=== PATIENT | female | born 1935 | race Caucasian/White ===

== ENCOUNTER 2018-03-02 13:41 | Inpatient (IN) | payer MEDICARE, BC ==
[2018-03-02] MEDS ORDERED: Sodium Chloride 0.9% 10 ML Syringe FLUSH PRN (13:50)
[2018-03-02] MEDS ORDERED: Sodium Chloride 0.9% 2.5 ML Syringe FLUSH PRN (13:50)
--- NOTE | 2018-03-02 13:53 | EDM.PDOC ---
ED HPI GENERAL MEDICAL PROBLEM - General Chief Complaint: General Stated Complaint: SORE THROAT,VOMITING Time Seen by Provider: 03/02/18 13:42 Source of Information: Reports: Family History Limitations: Reports: Other (Deaf and blind) - History of Present Illness INITIAL COMMENTS - FREE TEXT/NARRATIVE: History of present illness: []Patient has had low-grade fevers, short of breath and cough for 2 days. History of myelodysplastic syndrome and bruises very easily. At home with her was brought in by her granddaughter today. Patient is deaf and blind. Patient is not a candidate for other medical treatments at this time just receives transfusions when her hemoglobin gets to 7.0 and or her platelets are less than 10,000. Review of systems: As per history of present illness and below otherwise all systems reviewed and negative. Past medical history: As per history of present illness and as reviewed below otherwise noncontributory. Surgical history: As per history of present illness and as reviewed below otherwise noncontributory. Social history: No reported history of drug or alcohol abuse. Family history: As per history of present illness and as reviewed below otherwise noncontributory. Physical exam: General: Well developed, well nourished in NAD HEENT: Atraumatic, normocephalic, pupils reactive, negative for conjunctival pallor or scleral icterus, mucous membranes moist, throat clear, neck supple, nontender, trachea midline. Lungs: Clear to auscultation, breath sounds equal bilaterally, chest nontender. Heart: S1S2, regular, negative for clicks, rubs, or JVD. Abdomen: Soft, nondistended, nontender. Negative for masses or hepatosplenomegaly. Negative for costovertebral tenderness. Pelvis: Stable nontender. Genitourinary: Deferred. Rectal: Deferred. Extremities: Atraumatic, negative for cords or calf pain. Neurovascular unremarkable. Neuro: Awake, Exam nonfocal. Skin: Multiple large areas of purple ecchymosis Diagnostics: []Chest x-ray lower lobe patchy infiltrates read as pulmonary fibrosis by CRL, WBC shows white count 17,000 H&H of 7.2 and 25 platelets 15,000 Therapeutics: []IV antibiotics, IV hydration and blood transfusion Impression: []Pneumonia, myelodysplastic syndrome Plan: []Admit for transfusion and observation, Definitive disposition and diagnosis as appropriate pending reevaluation and review of above. - Related Data Allergies Allergy/AdvReac Type Severity Reaction Status Date / Time dexamethasone Allergy Cannot Verified 03/02/18 14:03 Remember hydrochlorothiazide Allergy Anaphylactic Verified 03/02/18 14:03 [From Maxzide] Shock triamterene [From Maxzide] Allergy Anaphylactic Verified 03/02/18 14:03 Shock Home Meds: Home Meds Citalopram Hydrobromide [Celexa] 20 mg PO DAILY 02/06/14 [History] Glucosamine [Glucosamine Sulfate] 1,000 mg PO DAILY 02/06/14 [History] Simvastatin [Zocor] 10 mg PO BEDTIME 02/06/14 [History] Flaxseed Oil 1,000 mg PO DAILY 06/11/16 [History] Furosemide [Lasix] 40 mg PO DAILY 06/11/16 [History] Levothyroxine [Synthroid] 50 mcg PO ACBREAKFAST 06/11/16 [History] Losartan Potassium [Cozaar] 100 mg PO DAILY 06/11/16 [History] Magnesium Oxide 400 mg PO DAILY 07/10/17 [History] Cholecalciferol (Vitamin D3) [Vitamin D3] 200 units PO DAILY 07/30/17 [History] Multivitamin with Minerals [Multivitamins with Minerals] 1 tab PO DAILY [History] Calcium Carb/D3/Magnesium/Zinc [Neto Mag Zinc + D Tablet] 1 tab PO DAILY [History] amLODIPine Besylate [Amlodipine Besylate] 5 mg PO DAILY 03/02/18 [History] Past Medical History HEENT History: Reports: Macular Degeneration Other HEENT History: legally blind Cardiovascular History: Reports: Afib, High Cholesterol, Hypertension, [place] Other Cardiovascular History: tri cuspid valve disorders, coronary artherosclerosis Respiratory History: Reports: Other (See Below) Other Respiratory History: pneumonia Gastrointestinal History: Reports: None, Other (See Below) Other Gastrointestinal History: hemoccult pos stool Genitourinary History: Reports: Other (See Below) Other Genitourinary History: renal insufficiency 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: Other Musculoskeletal History: use of cane occassionally Neurological History: Reports: CVA Other Neuro History: CVA x2, cerebrovascular disease Psychiatric History: Reports: Depression Endocrine/Metabolic History: Reports: Hypothyroidism Hematologic History: Other Hematologic History: hx macrocytic anemia, pancytopenia Immunologic History: Reports: None Oncologic (Cancer) History: Reports: None Dermatologic History: Reports: None - Past Surgical History Head Surgeries/Procedures: HEENT Surgical History: Reports: Oral Surgery Cardiovascular Surgical History: Reports: Coronary Artery Bypass Female Surgical History: Reports: D&C Neurological Surgical History: Reports: Lumbar Spine Other Neurological Surgeries/Procedures: back surgery x2 Musculoskeletal Surgical History: Reports: Knee Replacement, Other (See Below) Other Musculoskeletal Surgeries/Procedures:: back surgery Oncologic Surgical History: Reports: None Dermatological Surgical History: Reports: None Social & Family History - Family History Family Medical History: Noncontributory - Caffeine Use Caffeine Use: Reports: None - Living Situation & Occupation Living situation: Reports: with Family Occupation: Retired ED ROS GENERAL - Review of Systems Review Of Systems: See Below (See history of present illness) ED EXAM, GENERAL - Physical Exam Exam: See Below (See history of present illness) Course - Vital Signs Last Recorded V/S: Last Vital Signs Temp 98.5 F 03/02/18 14:04 Pulse 72 03/02/18 14:04 Resp 18 03/02/18 14:04 BP 144/48 H 03/02/18 14:04 Pulse Ox 95 03/02/18 14:04 - Orders/Labs/Meds Orders: Active Orders 24 hr Category Date Time Status Patient Status [ADT] Stat ADT 03/02/18 15:28 Ordered EKG 12 Lead [EKG Documentation Completion] [RC] STAT Care 03/02/18 14:52 Active Chest 2V [CR] Stat Exams 03/02/18 13:50 Taken Levofloxacin/Dextrose 5%-Water [Levaquin in D5W 500 MG/ Med 03/02/18 15:28 Ordered 100 ML] 500 mg Premix Bag 1 bag IV ONETIME Sodium Chloride 0.9% [Saline Flush] Med 03/02/18 13:50 Active 10 ml FLUSH ASDIRECTED PRN Sodium Chloride 0.9% [Saline Flush] Med 03/02/18 13:50 Active 2.5 ml FLUSH ASDIRECTED PRN Saline Lock Insert [OM.PC] Stat Oth 03/02/18 13:49 Ordered Transfuse Red Blood Cells [COMM] Stat Oth 03/02/18 15:27 Ordered Medication Orders Levofloxacin/Dextrose 500 mg/ (Premix) 100 mls @ 100 mls/hr IV ONETIME ONE Stop: 03/02/18 16:27 Sodium Chloride (Saline Flush) 10 ml FLUSH ASDIRECTED PRN PRN Reason: Keep Vein Open Sodium Chloride (Saline Flush) 2.5 ml FLUSH ASDIRECTED PRN PRN Reason: Keep Vein Open Labs: Laboratory Tests 03/02/18 03/02/18 03/02/18 Range/Units 13:56 13:56 13:56 WBC 17.62 H (4.0-11.0) K/uL RBC 2.41 L (4.30-5.90) M/uL Hgb 7.2 L (12.0-16.0) g/dL Hct 25.2 L (36.0-46.0) % MCV 104.6 H (80.0-98.0) fL MCH 29.9 (27.0-32.0) pg MCHC 28.6 L (31.0-37.0) g/dL RDW Std Deviation 85.7 H (28.0-62.0) fl RDW Coeff of Jojo 23 H (11.0-15.0) % Plt Count 15 L (150-400) K/uL Neut % (Auto) [employer] LOADER Lymph % (Auto) [employer] LO[employer] [place] % (Auto) [employer] LOAD[employer] Eos % (Auto) [employer] LO[employer] Baso % (Auto) [employer] LOAD[employer] Neut # (Auto) [employer] LOADER Lymph # (Auto) [employer] LO[employer] [place] # (Auto) [employer] LOAD[employer] Eos # (Auto) [employer] LOAD[employer] Baso # (Auto) [employer] LOAD[employer] Add Manual Diff YES Neutrophils % (Manual) 50 (48.0-80.0) % Band Neutrophils % 5 % Lymphocytes % (Manual) 36 (16.0-40.0) % Monocytes % (Manual) 9 (0.0-15.0) % Nucleated RBC % 0.4 /100WBC Absolute Seg Neuts 8.8 H (1.4-5.7) Band Neutrophils # 0.9 Lymphocytes # (Manual) 6.3 H (0.6-2.4) Monocytes # (Manual) 1.6 H (0.0-0.8) Nucleated RBCs # 0 K/uL INR 1.32 APTT 29.0 (18.6-31.3) SEC Sodium 138 (136-145) mmol/L Potassium 4.6 (3.5-5.1) mmol/L Chloride 105 (98-107) mmol/L Carbon Dioxide 24.1 (21.0-32.0) mmol/L BUN 35 H (7.0-18.0) mg/dL Creatinine 2.2 H (0.6-1.0) mg/dL Est Cr Clr Drug Dosing 15.75 mL/min Estimated GFR (MDRD) 21.3 ml/min Glucose 113 H (74-106) mg/dL Calcium 8.1 L (8.5-10.1) mg/dL Total Bilirubin 2.3 H (0.2-1.0) mg/dL AST 24 (15-37) IU/L ALT 19 (14-63) IU/L Alkaline Phosphatase 67 (46-116) U/L Total Protein 6.3 L (6.4-8.2) g/dL Albumin 3.2 L (3.4-5.0) g/dL Globulin 3.1 (2.0-3.5) g/dL Albumin/Globulin Ratio 1.0 L (1.3-2.8) Blood Type Antibody Screen 03/02/18 Range/Units 13:56 WBC (4.0-11.0) K/uL RBC (4.30-5.90) M/uL Hgb (12.0-16.0) g/dL Hct (36.0-46.0) % MCV (80.0-98.0) fL MCH (27.0-32.0) pg MCHC (31.0-37.0) g/dL RDW Std Deviation (28.0-62.0) fl RDW Coeff of Jojo (11.0-15.0) % Plt Count (150-400) K/uL Neut % (Auto) Lymph % (Auto) [place] % (Auto) Eos % (Auto) Baso % (Auto) Neut # (Auto) Lymph # (Auto) [place] # (Auto) Eos # (Auto) Baso # (Auto) Add Manual Diff Neutrophils % (Manual) (48.0-80.0) % Band Neutrophils % % Lymphocytes % (Manual) (16.0-40.0) % Monocytes % (Manual) (0.0-15.0) % Nucleated RBC % /100WBC Absolute Seg Neuts (1.4-5.7) Band Neutrophils # Lymphocytes # (Manual) (0.6-2.4) Monocytes # (Manual) (0.0-0.8) Nucleated RBCs # K/uL INR APTT (18.6-31.3) SEC Sodium (136-145) mmol/L Potassium (3.5-5.1) mmol/L Chloride (98-107) mmol/L Carbon Dioxide (21.0-32.0) mmol/L BUN (7.0-18.0) mg/dL Creatinine (0.6-1.0) mg/dL Est Cr Clr Drug Dosing mL/min Estimated GFR (MDRD) ml/min Glucose (74-106) mg/dL Calcium (8.5-10.1) mg/dL Total Bilirubin (0.2-1.0) mg/dL AST (15-37) IU/L ALT (14-63) IU/L Alkaline Phosphatase (46-116) U/L Total Protein (6.4-8.2) g/dL Albumin (3.4-5.0) g/dL Globulin (2.0-3.5) g/dL Albumin/Globulin Ratio (1.3-2.8) Blood Type A POSITIVE Antibody Screen NEGATIVE Meds: Medications Generic Name Dose Route Start Last Admin Trade Name Freq PRN Reason Stop Dose Admin Levofloxacin/Dextrose 500 mg/ 100 mls @ 100 mls/hr 03/02/18 15:28 Premix IV 03/02/18 16:27 ONETIME ONE Sodium Chloride 10 ml 03/02/18 13:50 Saline Flush FLUSH ASDIRECTED PRN Keep Vein Open Sodium Chloride 2.5 ml 03/02/18 13:50 Saline Flush FLUSH ASDIRECTED PRN Keep Vein Open - Re-Assessments/Exams Free Text/Narrative Re-Assessment/Exam: I spoke to Dr. Lechuga at [facility] oncology who takes care of this patient he recommended this patient receive antibiotics and he highly recommends transfusing 1 unit of packed red blood cells in the emergency room before discharging home. We are unable to transfuse blood in the ED with Dr. Winston agrees to admit for observation and will continue IV antibiotics, transfused a unit on the floor and discharge her tomorrow if she responds well 03/02/18 15:36 Departure - Departure Time of Disposition: 15:37 Disposition: Refer to Observation Condition: Fair Clinical Impression: Myelodysplastic syndrome, Pneumonia - Discharge Information Referrals: Charles Doyle MD [Primary Care Provider] - Forms: ED Department Discharge - My Orders Last 24 Hours: My Active Orders 03/02/18 13:49 Saline Lock Insert [OM.PC] Stat 03/02/18 13:50 Chest 2V [CR] Stat Sodium Chloride 0.9% [Saline Flush] 10 ml FLUSH ASDIRECTED PRN Sodium Chloride 0.9% [Saline Flush] 2.5 ml FLUSH ASDIRECTED PRN 03/02/18 14:52 EKG 12 Lead [EKG Documentation Completion] [RC] STAT 03/02/18 15:27 Transfuse Red Blood Cells [COMM] Stat 03/02/18 15:28 Patient Status [ADT] Stat Levofloxacin/Dextrose 5%-Water [Levaquin in D5W 500 MG/100 ML] 500 mg Premix Bag 1 bag IV ONETIME - Assessment/Plan Last 24 Hours: My Active Orders 03/02/18 13:49 Saline Lock Insert [OM.PC] Stat 03/02/18 13:50 Chest 2V [CR] Stat Sodium Chloride 0.9% [Saline Flush] 10 ml FLUSH ASDIRECTED PRN Sodium Chloride 0.9% [Saline Flush] 2.5 ml FLUSH ASDIRECTED PRN 03/02/18 14:52 EKG 12 Lead [EKG Documentation Completion] [RC] STAT 03/02/18 15:27 Transfuse Red Blood Cells [COMM] Stat 03/02/18 15:28 Patient Status [ADT] Stat Levofloxacin/Dextrose 5%-Water [Levaquin in D5W 500 MG/100 ML] 500 mg Premix Bag 1 bag IV ONETIME
[2018-03-02] MEDS ORDERED: Levofloxacin/Dextrose 5%-Water 500 MG in Premix Bag 1 BAG IV ONE (15:28)
[2018-03-02] MEDS ORDERED: Acetaminophen 325 MG Tab PO PRN (17:09)
[2018-03-02] MEDS ORDERED: Albuterol/Ipratropium 3.0-0.5 MG/3 ML Neb Soln NEB PRN (17:09)
--- NOTE | 2018-03-02 17:09 | PCM.HP ---
H&P History of Present Illness - General Admit Problem/Dx: Admission Diagnosis/Problem Admission Diagnosis/Problem Anemia - History of Present Illness Initial Comments - Free Text/Narative: 82 yo female with pmh of MDS who presents to the ED with fatigue, shortness of breath, cough and fevers. - Related Data Allergies/Adverse Reactions: Allergies Allergy/AdvReac Type Severity Reaction Status Date / Time dexamethasone Allergy Cannot Verified 03/02/18 14:03 Remember hydrochlorothiazide Allergy Anaphylactic Verified 03/02/18 14:03 [From Maxzide] Shock triamterene [From Maxzide] Allergy Anaphylactic Verified 03/02/18 14:03 Shock Home Medications: Home Meds Citalopram Hydrobromide [Celexa] 20 mg PO DAILY 02/06/14 [History] Glucosamine [Glucosamine Sulfate] 1,000 mg PO DAILY 02/06/14 [History] Simvastatin [Zocor] 10 mg PO BEDTIME 02/06/14 [History] Flaxseed Oil 1,000 mg PO DAILY 06/11/16 [History] Furosemide [Lasix] 40 mg PO DAILY 06/11/16 [History] Levothyroxine [Synthroid] 50 mcg PO ACBREAKFAST 06/11/16 [History] Losartan Potassium [Cozaar] 100 mg PO DAILY 06/11/16 [History] Magnesium Oxide 400 mg PO DAILY 07/10/17 [History] Cholecalciferol (Vitamin D3) [Vitamin D3] 200 units PO DAILY 07/30/17 [History] Multivitamin with Minerals [Multivitamins with Minerals] 1 tab PO DAILY [History] Calcium Carb/D3/Magnesium/Zinc [Neto Mag Zinc + D Tablet] 1 tab PO DAILY [History] amLODIPine Besylate [Amlodipine Besylate] 5 mg PO DAILY 03/02/18 [History] Past Medical History HEENT History: Reports: Macular Degeneration Other HEENT History: legally blind Cardiovascular History: Reports: Afib, High Cholesterol, Hypertension, [place] Other Cardiovascular History: tri cuspid valve disorders, coronary artherosclerosis Respiratory History: Reports: Other (See Below) Other Respiratory History: pneumonia Gastrointestinal History: Reports: None Other Gastrointestinal History: hemoccult pos stool Genitourinary History: Reports: None Other Genitourinary History: renal insufficiency 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 History: Reports: Other (See Below) Other Musculoskeletal History: use of cane occassionally Neurological History: Reports: CVA Other Neuro History: CVA x2, cerebrovascular disease Psychiatric History: Reports: Depression Endocrine/Metabolic History: Reports: Hypothyroidism Hematologic History: Other Hematologic History: hx macrocytic anemia, pancytopenia Immunologic History: Reports: None Oncologic (Cancer) History: Reports: Leukemia Dermatologic History: Reports: None - Infectious Disease History Infectious Disease History: Reports: Chicken Pox - Past Surgical History Cardiovascular Surgical History: Reports: Coronary Artery Bypass Female Surgical History: Reports: D&C Neurological Surgical History: Reports: Lumbar Spine Other Neurological Surgeries/Procedures: back surgery x2 Musculoskeletal Surgical History: Reports: Knee Replacement, Other (See Below) Other Musculoskeletal Surgeries/Procedures:: back surgery Oncologic Surgical History: Reports: None Dermatological Surgical History: Reports: None Social & Family History - Family History Family Medical History: Noncontributory - Tobacco Use Smoking Status *Q: Never Smoker Second Hand Smoke Exposure: No - Caffeine Use Caffeine Use: Reports: Soda - Recreational Drug Use Recreational Drug Use: No - Living Situation & Occupation Living situation: Reports: with Family Occupation: Retired H&P Review of Systems - Review of Systems: Review Of Systems: ROS reveals no pertinent complaints other than HPI. Exam - Exam Exam: See Below - Vital Signs Vital Signs: Last Vital Signs Temp 36.9 C 03/02/18 14:04 Pulse 72 03/02/18 14:04 Resp 18 03/02/18 14:04 BP 144/48 H 03/02/18 14:04 Pulse Ox 95 03/02/18 14:04 Weight: 67.993 kg - Exam General: Alert, Oriented HEENT: Mucosa Moist & [place] Lungs: Normal Respiratory Effort, Rhonchi Cardiovascular: Regular Rate, Regular Rhythm GI/Abdominal Exam: Soft, Non-Tender Extremities: No Pedal Edema Skin: Warm, Dry, Intact - Patient Data Lab Results Last 24 hrs: Laboratory Results - last 24 hr 03/02/18 03/02/18 03/02/18 Range/Units 13:56 13:56 13:56 WBC 17.62 H (4.0-11.0) K/uL RBC 2.41 L (4.30-5.90) M/uL Hgb 7.2 L (12.0-16.0) g/dL Hct 25.2 L (36.0-46.0) % MCV 104.6 H (80.0-98.0) fL MCH 29.9 (27.0-32.0) pg MCHC 28.6 L (31.0-37.0) g/dL RDW Std Deviation 85.7 H (28.0-62.0) fl RDW Coeff of Jojo 23 H (11.0-15.0) % Plt Count 15 L (150-400) K/uL Neut % (Auto) [employer]E MACHINE FEEDER Lymph % (Auto) [employer] MACHINE FEEDER [place] % (Auto) [employer]E MACHINE FEEDER Eos % (Auto) [employer]E MACHINE FEEDER Baso % (Auto) [employer] MACHINE FEEDER Neut # (Auto) [employer]E MACHINE FEEDER Lymph # (Auto) [employer]E MACHINE FEEDER [place] # (Auto) [employer]E MACHINE FEEDER Eos # (Auto) [employer]E MACHINE FEEDER Baso # (Auto) [employer] MACHINE FEEDER Add Manual Diff YES Neutrophils % (Manual) 50 (48.0-80.0) % Band Neutrophils % 5 % Lymphocytes % (Manual) 36 (16.0-40.0) % Monocytes % (Manual) 9 (0.0-15.0) % Nucleated RBC % 0.4 /100WBC Absolute Seg Neuts 8.8 H (1.4-5.7) Band Neutrophils # 0.9 Lymphocytes # (Manual) 6.3 H (0.6-2.4) Monocytes # (Manual) 1.6 H (0.0-0.8) Nucleated RBCs # 0 K/uL INR 1.32 APTT 29.0 (18.6-31.3) SEC Sodium 138 (136-145) mmol/L Potassium 4.6 (3.5-5.1) mmol/L Chloride 105 (98-107) mmol/L Carbon Dioxide 24.1 (21.0-32.0) mmol/L BUN 35 H (7.0-18.0) mg/dL Creatinine 2.2 H (0.6-1.0) mg/dL Est Cr Clr Drug Dosing 15.75 mL/min Estimated GFR (MDRD) 21.3 ml/min Glucose 113 H (74-106) mg/dL Calcium 8.1 L (8.5-10.1) mg/dL Total Bilirubin 2.3 H (0.2-1.0) mg/dL AST 24 (15-37) IU/L ALT 19 (14-63) IU/L Alkaline Phosphatase 67 (46-116) U/L Total Protein 6.3 L (6.4-8.2) g/dL Albumin 3.2 L (3.4-5.0) g/dL Globulin 3.1 (2.0-3.5) g/dL Albumin/Globulin Ratio 1.0 L (1.3-2.8) Blood Type Antibody Screen Crossmatch 03/02/18 Range/Units 13:56 WBC (4.0-11.0) K/uL RBC (4.30-5.90) M/uL Hgb (12.0-16.0) g/dL Hct (36.0-46.0) % MCV (80.0-98.0) fL MCH (27.0-32.0) pg MCHC (31.0-37.0) g/dL RDW Std Deviation (28.0-62.0) fl RDW Coeff of Jojo (11.0-15.0) % Plt Count (150-400) K/uL Neut % (Auto) Lymph % (Auto) [place] % (Auto) Eos % (Auto) Baso % (Auto) Neut # (Auto) Lymph # (Auto) [place] # (Auto) Eos # (Auto) Baso # (Auto) Add Manual Diff Neutrophils % (Manual) (48.0-80.0) % Band Neutrophils % % Lymphocytes % (Manual) (16.0-40.0) % Monocytes % (Manual) (0.0-15.0) % Nucleated RBC % /100WBC Absolute Seg Neuts (1.4-5.7) Band Neutrophils # Lymphocytes # (Manual) (0.6-2.4) Monocytes # (Manual) (0.0-0.8) Nucleated RBCs # K/uL INR APTT (18.6-31.3) SEC Sodium (136-145) mmol/L Potassium (3.5-5.1) mmol/L Chloride (98-107) mmol/L Carbon Dioxide (21.0-32.0) mmol/L BUN (7.0-18.0) mg/dL Creatinine (0.6-1.0) mg/dL Est Cr Clr Drug Dosing mL/min Estimated GFR (MDRD) ml/min Glucose (74-106) mg/dL Calcium (8.5-10.1) mg/dL Total Bilirubin (0.2-1.0) mg/dL AST (15-37) IU/L ALT (14-63) IU/L Alkaline Phosphatase (46-116) U/L Total Protein (6.4-8.2) g/dL Albumin (3.4-5.0) g/dL Globulin (2.0-3.5) g/dL Albumin/Globulin Ratio (1.3-2.8) Blood Type A POSITIVE Antibody Screen NEGATIVE Crossmatch See Detail Result Diagrams: 03/03/18 05:33 03/03/18 05:33 [place] Results Last 24 hrs: Microbiology 03/02/18 14:07 Anaerobic Blood Culture - Final Blood - Venous - Lab Draw Problem List Initiated/Reviewed/Updated: Yes Orders Last 24hrs: Active Orders 24 hr Category Date Time Status Patient Status [ADT] Stat ADT 03/02/18 15:28 Active EKG 12 Lead [EKG Documentation Completion] [RC] STAT Care 03/02/18 14:52 Active Regular Diet [DIET] Diet 03/03/18 Breakfast Active Chest 2V [CR] Stat Exams 03/02/18 13:50 Taken CULTURE BLOOD [BC] Stat Lab 03/02/18 16:40 Ordered CULTURE BLOOD [BC] Stat Lab 03/02/18 16:40 Ordered CULTURE SPUTUM + SMEAR [RM] Routine Lab 03/02/18 16:48 Ordered CULTURE URINE [RM] Routine Lab 03/02/18 16:48 Ordered RED BLOOD CELLS LP [BBK] Stat Lab 03/02/18 13:56 Results TYPE AND SCREEN [BBK] Stat Lab 03/02/18 13:56 Results UA W/MICROSCOPIC [URIN] Routine Lab 03/02/18 16:48 Ordered Citalopram Med 03/03/18 09:00 Ordered 20 mg PO DAILY Levofloxacin/Dextrose 5%-Water [Levaquin in D5W 750 MG/ Med 03/03/18 17:15 Ordered 150 ML] 750 mg Premix Bag 1 bag IV Q24H Levothyroxine [Synthroid] Med 03/03/18 07:30 Ordered 50 mcg PO ACBREAKFAST Losartan Potassium Med 03/03/18 09:00 Ordered 100 mg PO DAILY Simvastatin [Zocor] Med 03/02/18 21:00 Ordered 10 mg PO BEDTIME Sodium Chloride 0.9% [Saline Flush] Med 03/02/18 13:50 Active 10 ml FLUSH ASDIRECTED PRN Sodium Chloride 0.9% [Saline Flush] Med 03/02/18 13:50 Active 2.5 ml FLUSH ASDIRECTED PRN amLODIPine [Norvasc] Med 03/03/18 09:00 Ordered 5 mg PO DAILY Blood Culture x2 Reflex Set [OM.PC] Stat Ot 03/02/18 16:40 Ordered Saline Lock Insert [OM.PC] Stat Ot 03/02/18 13:49 Ordered Transfuse Red Blood Cells [COMM] Stat Ot 03/02/18 15:27 Ordered Medication Orders Levofloxacin/Dextrose 750 mg/ (Premix) 150 mls @ 100 mls/hr IV Q24H BARRY Sodium Chloride (Saline Flush) 10 ml FLUSH ASDIRECTED PRN PRN Reason: Keep Vein Open Sodium Chloride (Saline Flush) 2.5 ml FLUSH ASDIRECTED PRN PRN Reason: Keep Vein Open Assessment/Plan Comment:: 82 yo female admitted with pneumonia and symptomatic anemia due to MDS. We will treat with levaquin, and transfuse one unit of pRBCs
[2018-03-02] MEDS ORDERED: Levofloxacin/Dextrose 5%-Water 250 MG in Premix Bag 1 BAG IV ONE (17:15)
[2018-03-02] MEDS: Simvastatin 10 MG Tab PO SCH (20:31)
[2018-03-03] MEDS: Levothyroxine 50 MCG Tab PO SCH (06:30)
[2018-03-03] MEDS: Citalopram 20 MG Tab PO SCH (08:04)
[2018-03-03] MEDS: amLODIPine 5 MG Tab PO SCH (08:04)
[2018-03-03] MEDS: Losartan 50 MG Tab PO SCH (08:04)
--- NOTE | 2018-03-03 10:18 | PCM.PN ---
- General Info Date of Service: 03/03/18 Admission Dx/Problem (Free Text): Admission Diagnosis/Problem Admission Diagnosis/Problem Anemia Subjective Update: Patient is poor historian. She states that breathing is improving. Denies any active bleeding. Denies pain with urination. Functional Status: Reports: Pain Controlled, Tolerating Diet - Review of Systems General: Reports: Weakness, Fatigue HEENT: Reports: No Symptoms Pulmonary: Reports: Shortness of Breath, Cough Cardiovascular: Reports: No Symptoms Gastrointestinal: Reports: No Symptoms Genitourinary: Reports: No Symptoms Musculoskeletal: Reports: No Symptoms Skin: Reports: No Symptoms Neurological: Reports: No Symptoms Psychiatric: Reports: No Symptoms - Patient Data Vitals - Most Recent: Last Vital Signs Temp 36.6 C 03/03/18 07:26 Pulse 68 03/03/18 07:26 Resp 22 H 03/03/18 07:26 BP 141/64 H 03/03/18 08:04 Pulse Ox 96 03/03/18 07:26 Weight - Most Recent: 67.993 kg I&O - Last 24 Hours: Intake & Output 03/02/18 03/03/18 03/03/18 22:59 06:59 14:59 Intake Total 350 400 Output Total 600 Balance 350 -200 Lab Results Last 24 Hours: Laboratory Results - last 24 hr 03/02/18 03/02/18 03/02/18 Range/Units 13:56 13:56 13:56 WBC 17.62 H (4.0-11.0) K/uL RBC 2.41 L (4.30-5.90) M/uL Hgb 7.2 L (12.0-16.0) g/dL Hct 25.2 L (36.0-46.0) % MCV 104.6 H (80.0-98.0) fL MCH 29.9 (27.0-32.0) pg MCHC 28.6 L (31.0-37.0) g/dL RDW Std Deviation 85.7 H (28.0-62.0) fl RDW Coeff of Jojo 23 H (11.0-15.0) % Plt Count 15 L (150-400) K/uL Neut % (Auto) DOUBLE HEAD MACHINE OPERATOR Lymph % (Auto) DOUBLE HEAD MACHINE OPERATOR [place] % (Auto) DOUBLE HEAD MACHINE OPERATOR Eos % (Auto) DOUBLE HEAD MACHINE OPERATOR Baso % (Auto) DOUBLE HEAD MACHINE OPERATOR Neut # (Auto) DOUBLE HEAD MACHINE OPERATOR Lymph # (Auto) DOUBLE HEAD MACHINE OPERATOR [place] # (Auto) DOUBLE HEAD MACHINE OPERATOR Eos # (Auto) DOUBLE HEAD MACHINE OPERATOR Baso # (Auto) DOUBLE HEAD MACHINE OPERATOR Add Manual Diff YES Neutrophils % (Manual) 50 (48.0-80.0) % Band Neutrophils % 5 % Lymphocytes % (Manual) 36 (16.0-40.0) % Monocytes % (Manual) 9 (0.0-15.0) % Eosinophils % (Manual) (0.0-7.0) % Metamyelocytes % % Myelocytes % % Blast Cells % % Nucleated RBC % 0.4 /100WBC Absolute Seg Neuts 8.8 H (1.4-5.7) Band Neutrophils # 0.9 Lymphocytes # (Manual) 6.3 H (0.6-2.4) Monocytes # (Manual) 1.6 H (0.0-0.8) Eosinophils # (Manual) (0.0-0.7) Absolute Metamyelocyte Absolute Myelocytes Nucleated RBCs # 0 K/uL Absolute Blast Cells INR 1.32 APTT 29.0 (18.6-31.3) SEC Sodium 138 (136-145) mmol/L Potassium 4.6 (3.5-5.1) mmol/L Chloride 105 (98-107) mmol/L Carbon Dioxide 24.1 (21.0-32.0) mmol/L BUN 35 H (7.0-18.0) mg/dL Creatinine 2.2 H (0.6-1.0) mg/dL Est Cr Clr Drug Dosing 15.75 mL/min Estimated GFR (MDRD) 21.3 ml/min Glucose 113 H (74-106) mg/dL Calcium 8.1 L (8.5-10.1) mg/dL Total Bilirubin 2.3 H (0.2-1.0) mg/dL AST 24 (15-37) IU/L ALT 19 (14-63) IU/L Alkaline Phosphatase 67 (46-116) U/L Total Protein 6.3 L (6.4-8.2) g/dL Albumin 3.2 L (3.4-5.0) g/dL Globulin 3.1 (2.0-3.5) g/dL Albumin/Globulin Ratio 1.0 L (1.3-2.8) Urine Color Urine Appearance Urine pH (5.0-8.0) Ur Specific [place] (1.001-1.035) Urine Protein (NEGATIVE) mg/dL Urine Glucose (UA) (NEGATIVE) mg/dL Urine Ketones (NEGATIVE) mg/dL Urine Occult Blood (NEGATIVE) Urine Nitrite (NEGATIVE) Urine Bilirubin (NEGATIVE) Urine Urobilinogen (<2.0) EU/dL Ur Leukocyte Esterase (NEGATIVE) Urine RBC (0-2/HPF) Urine WBC (0-5/HPF) Ur Epithelial Cells (NONE-FEW) Urine Bacteria (NEGATIVE) Blood Type Antibody Screen Crossmatch 03/02/18 03/02/18 03/03/18 Range/Units 13:56 17:06 05:33 WBC 17.40 H (4.0-11.0) K/uL RBC 2.73 L (4.30-5.90) M/uL Hgb 8.2 L (12.0-16.0) g/dL Hct 27.6 L (36.0-46.0) % MCV 101.1 H (80.0-98.0) fL MCH 30.0 (27.0-32.0) pg MCHC 29.7 L (31.0-37.0) g/dL RDW Std Deviation 83.4 H (28.0-62.0) fl RDW Coeff of Jojo 24 H (11.0-15.0) % Plt Count 15 L (150-400) K/uL Neut % (Auto) Lymph % (Auto) [place] % (Auto) Eos % (Auto) Baso % (Auto) Neut # (Auto) Lymph # (Auto) [place] # (Auto) Eos # (Auto) Baso # (Auto) Add Manual Diff YES Neutrophils % (Manual) 48 (48.0-80.0) % Band Neutrophils % 1 % Lymphocytes % (Manual) 12 L (16.0-40.0) % Monocytes % (Manual) 31 H (0.0-15.0) % Eosinophils % (Manual) 1 (0.0-7.0) % Metamyelocytes % 3 % Myelocytes % 2 % Blast Cells % 2 % Nucleated RBC % 0.4 /100WBC Absolute Seg Neuts 8.4 H (1.4-5.7) Band Neutrophils # 0.2 Lymphocytes # (Manual) 2.1 (0.6-2.4) Monocytes # (Manual) 5.4 H (0.0-0.8) Eosinophils # (Manual) 0.2 (0.0-0.7) Absolute Metamyelocyte 0.5 Absolute Myelocytes 0.3 Nucleated RBCs # 0 K/uL Absolute Blast Cells 0.3 INR APTT (18.6-31.3) SEC Sodium (136-145) mmol/L Potassium (3.5-5.1) mmol/L Chloride (98-107) mmol/L Carbon Dioxide (21.0-32.0) mmol/L BUN (7.0-18.0) mg/dL Creatinine (0.6-1.0) mg/dL Est Cr Clr Drug Dosing mL/min Estimated GFR (MDRD) ml/min Glucose (74-106) mg/dL Calcium (8.5-10.1) mg/dL Total Bilirubin (0.2-1.0) mg/dL AST (15-37) IU/L ALT (14-63) IU/L Alkaline Phosphatase (46-116) U/L Total Protein (6.4-8.2) g/dL Albumin (3.4-5.0) g/dL Globulin (2.0-3.5) g/dL Albumin/Globulin Ratio (1.3-2.8) Urine Color YELLOW Urine Appearance CLEAR Urine pH 5.5 (5.0-8.0) Ur Specific [place] 1.025 (1.001-1.035) Urine Protein 100 (NEGATIVE) mg/dL Urine Glucose (UA) NEGATIVE (NEGATIVE) mg/dL Urine Ketones NEGATIVE (NEGATIVE) mg/dL Urine Occult Blood MODERATE (NEGATIVE) Urine Nitrite NEGATIVE (NEGATIVE) Urine Bilirubin NEGATIVE (NEGATIVE) Urine Urobilinogen 0.2 (<2.0) EU/dL Ur Leukocyte Esterase MODERATE (NEGATIVE) Urine RBC 3-6 (0-2/HPF) Urine WBC 100-120 (0-5/HPF) Ur Epithelial Cells FEW (NONE-FEW) Urine Bacteria 3+ H (NEGATIVE) Blood Type A POSITIVE Antibody Screen NEGATIVE Crossmatch See Detail 03/03/18 Range/Units 05:33 WBC (4.0-11.0) K/uL RBC (4.30-5.90) M/uL Hgb (12.0-16.0) g/dL Hct (36.0-46.0) % MCV (80.0-98.0) fL MCH (27.0-32.0) pg MCHC (31.0-37.0) g/dL RDW Std Deviation (28.0-62.0) fl RDW Coeff of Jojo (11.0-15.0) % Plt Count (150-400) K/uL Neut % (Auto) Lymph % (Auto) [place] % (Auto) Eos % (Auto) Baso % (Auto) Neut # (Auto) Lymph # (Auto) [place] # (Auto) Eos # (Auto) Baso # (Auto) Add Manual Diff Neutrophils % (Manual) (48.0-80.0) % Band Neutrophils % % Lymphocytes % (Manual) (16.0-40.0) % Monocytes % (Manual) (0.0-15.0) % Eosinophils % (Manual) (0.0-7.0) % Metamyelocytes % % Myelocytes % % Blast Cells % % Nucleated RBC % /100WBC Absolute Seg Neuts (1.4-5.7) Band Neutrophils # Lymphocytes # (Manual) (0.6-2.4) Monocytes # (Manual) (0.0-0.8) Eosinophils # (Manual) (0.0-0.7) Absolute Metamyelocyte Absolute Myelocytes Nucleated RBCs # K/uL Absolute Blast Cells INR APTT (18.6-31.3) SEC Sodium 139 (136-145) mmol/L Potassium 4.6 (3.5-5.1) mmol/L Chloride 106 (98-107) mmol/L Carbon Dioxide 24.9 (21.0-32.0) mmol/L BUN 33 H (7.0-18.0) mg/dL Creatinine 2.1 H (0.6-1.0) mg/dL Est Cr Clr Drug Dosing 16.49 mL/min Estimated GFR (MDRD) 22.4 ml/min Glucose 99 (74-106) mg/dL Calcium 7.9 L (8.5-10.1) mg/dL Total Bilirubin (0.2-1.0) mg/dL AST (15-37) IU/L ALT (14-63) IU/L Alkaline Phosphatase (46-116) U/L Total Protein (6.4-8.2) g/dL Albumin (3.4-5.0) g/dL Globulin (2.0-3.5) g/dL Albumin/Globulin Ratio (1.3-2.8) Urine Color Urine Appearance Urine pH (5.0-8.0) Ur Specific [place] (1.001-1.035) Urine Protein (NEGATIVE) mg/dL Urine Glucose (UA) (NEGATIVE) mg/dL Urine Ketones (NEGATIVE) mg/dL Urine Occult Blood (NEGATIVE) Urine Nitrite (NEGATIVE) Urine Bilirubin (NEGATIVE) Urine Urobilinogen (<2.0) EU/dL Ur Leukocyte Esterase (NEGATIVE) Urine RBC (0-2/HPF) Urine WBC (0-5/HPF) Ur Epithelial Cells (NONE-FEW) Urine Bacteria (NEGATIVE) Blood Type Antibody Screen Crossmatch Nixon Results Last 24 Hours: Microbiology 03/02/18 14:07 Anaerobic Blood Culture - Final Blood - Venous - Lab Draw Med Orders - Current: Current Medications Acetaminophen (Tylenol) 650 mg PO Q4H PRN PRN Reason: Pain (Mild 1-3)/fever Albuterol/Ipratropium (Duoneb 3.0-0.5 Mg/3 Ml) 3 ml NEB Q4HRRT PRN PRN Reason: Shortness Of Breath/wheezing Amlodipine Besylate (Norvasc) 5 mg PO DAILY [facility] Last Admin: 03/03/18 08:04 Dose: 5 mg Citalopram Hydrobromide (Celexa) 20 mg PO DAILY [facility] Last Admin: 03/03/18 08:04 Dose: 20 mg Levofloxacin/Dextrose 500 mg/ (Premix) 100 mls @ 100 mls/hr IV Q48H [facility] Levothyroxine Sodium (Synthroid) 50 mcg PO ACBREAKFAST [facility] Last Admin: 03/03/18 06:30 Dose: 50 mcg Losartan Potassium (Cozaar) 100 mg PO DAILY [facility] Last Admin: 03/03/18 08:04 Dose: 100 mg Simvastatin (Zocor) 10 mg PO BEDTIME [facility] Last Admin: 03/02/18 20:31 Dose: 10 mg Sodium Chloride (Saline Flush) 10 ml FLUSH ASDIRECTED PRN PRN Reason: Keep Vein Open Sodium Chloride (Saline Flush) 2.5 ml FLUSH ASDIRECTED PRN PRN Reason: Keep Vein Open Discontinued Medications Levofloxacin/Dextrose 500 mg/ (Premix) 100 mls @ 100 mls/hr IV ONETIME ONE Stop: 03/02/18 16:27 Last Admin: 03/02/18 15:35 Dose: 100 mls/hr Levofloxacin/Dextrose 750 mg/ (Premix) 150 mls @ 100 mls/hr IV Q24H [facility] Levofloxacin/Dextrose 250 mg/ (Premix) 50 mls @ 50 mls/hr IV ONETIME ONE Stop: 03/02/18 18:14 Last Admin: 03/02/18 17:36 Dose: Not Given - Exam General: Alert, Oriented, Cooperative, No Acute Distress HEENT: Mucous Membr. Moist/[place], Other (baseline vision loss, mild intranasal bleeding ) Neck: Supple Lungs: Normal Respiratory Effort, Crackles Cardiovascular: Regular Rate, Regular Rhythm GI/Abdominal Exam: Normal Bowel Sounds, Soft, Non-Tender Extremities: Normal Inspection, No Pedal Edema Skin: Intact, Other (generalized bruising, no petechia ) Neurological: No New Focal Deficit Psy/Mental Status: Alert, Normal Affect, Normal Mood - Problem List Review Problem List Initiated/Reviewed/Updated: Yes - Plan Plan:: 82 yo female admitted with pneumonia and symptomatic anemia due to MDS. We will treat with levaquin, and transfuse one unit of pRBCs #CAP #Acute on Chronic Respiratory Failure with Hypoxia -as per family patient is on home O2 PRN -currently on 3L O2 -BC NGTD Plan: -continue Levaquin -add Cefepime -f/u cultures #UTI -UA: LE+, WBC 100, Bacteria 3+, Few squams, occult blood positive -UC ordered Plan: -continue antibiotics as per above -f/u UC #Leukocytosis -likely multifactoral secondary to CAP and UTI -plan as per above #Thrombocytopenia, 15k -patient with history of Thrombocytopenia requiring Platelet transfusion -minimal nasal bleeding, no open lesion, generalized ecchymosis, no petechia Plan: -order platelets for transfusion #Symptomatic Anemia s/p Transfusion 1 unit #Hx MDS -Hb 7.2 at admission, improved to 8.2 following 1 unit pRBC -MDS followed by Oncology -continue to monitor #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
[2018-03-03] MEDS ORDERED: Levofloxacin/Dextrose 5%-Water 750 MG in Premix Bag 1 BAG IV SCH (17:15)
--- NOTE | 2018-03-03 20:12 | CR ---
EXAM DATE: 03/02/18 PATIENT'S AGE: 82 Patient: ABDOULAYE ARDON Facility: [place], [place] Site . Site : [id number] Study: XRay Chest [id number]/[id number] 2:38:32 PM Ordering Physician: Diaz Blank Final Report: HISTORY: Shortness breath. TECHNIQUE: Two views of the chest. COMPARISON: 06/10/2016. FINDINGS: Prior sternotomy. Mild cardiomegaly as before. No change in mild relative elevation of right hemidiaphragm. As before, there is slight prominence of the pulmonary interstitium which may indicate fibrosis. There is no consolidation. No pleural effusion or pneumothorax. IMPRESSION: 1. Cardiomegaly as before. 2. As before, there is mild prominence of the pulmonary interstitium which may relate to fibrosis. 3. No acute lung infiltrate. Dictated by Fermin Lombardo MD @ 03/02/2018 2:59:43 PM Dictated by: Fermin Lombardo MD @ 03/02/2018 14:59:48 (Electronic Signature) Report Signed by Proxy. [facility]PIT[facility]
[2018-03-03] MEDS: Cefepime 1 GM in Premix Bag 1 BAG IV SCH (20:29)
[2018-03-03] MEDS: Simvastatin 10 MG Tab PO SCH (20:29)
[2018-03-04] MEDS: Cefepime 1 GM in Premix Bag 1 BAG IV SCH ×3 (04:14→20:12)
[2018-03-04] MEDS: Levothyroxine 50 MCG Tab PO SCH (06:56)
[2018-03-04] MEDS: Citalopram 20 MG Tab PO SCH (08:33)
--- NOTE | 2018-03-04 08:34 | PCM.PN ---
- General Info Date of Service: 03/04/18 Admission Dx/Problem (Free Text): Admission Diagnosis/Problem Admission Diagnosis/Problem Anemia Subjective Update: Patient sitting up and eating for first time. Communicating more today. Still complaining of cough. Functional Status: Reports: Tolerating Diet - Review of Systems General: Reports: No Symptoms HEENT: Reports: No Symptoms Pulmonary: Reports: Shortness of Breath, Cough Cardiovascular: Reports: No Symptoms Gastrointestinal: Reports: No Symptoms Genitourinary: Reports: No Symptoms Musculoskeletal: Reports: No Symptoms Skin: Reports: Other (left breast lump) Neurological: Reports: No Symptoms Psychiatric: Reports: No Symptoms - Patient Data Vitals - Most Recent: Last Vital Signs Temp 36.3 C 03/04/18 03:00 Pulse 67 03/04/18 03:00 Resp 18 03/04/18 03:00 BP 119/33 L 03/04/18 03:00 Pulse Ox 95 03/04/18 06:00 Weight - Most Recent: 67.993 kg I&O - Last 24 Hours: Intake & Output 03/03/18 03/04/18 03/04/18 22:59 06:59 14:59 Intake Total 600 500 Output Total 200 925 Balance 400 -425 Lab Results Last 24 Hours: Laboratory Results - last 24 hr 03/04/18 03/04/18 Range/Units 04:45 04:45 WBC 11.98 H (4.0-11.0) K/uL RBC 2.44 L (4.30-5.90) M/uL Hgb 7.4 L (12.0-16.0) g/dL Hct 24.8 L (36.0-46.0) % MCV 101.6 H (80.0-98.0) fL MCH 30.3 (27.0-32.0) pg MCHC 29.8 L (31.0-37.0) g/dL RDW Std Deviation 83.6 H (28.0-62.0) fl RDW Coeff of Jojo 23 H (11.0-15.0) % Plt Count 15 L (150-400) K/uL Add Manual Diff YES Nucleated RBC % 0.0 /100WBC Nucleated RBCs # 0 K/uL Sodium 137 (136-145) mmol/L Potassium 4.5 (3.5-5.1) mmol/L Chloride 107 (98-107) mmol/L Carbon Dioxide 22.4 (21.0-32.0) mmol/L BUN 38 H (7.0-18.0) mg/dL Creatinine 2.0 H (0.6-1.0) mg/dL Est Cr Clr Drug Dosing 17.31 mL/min Estimated GFR (MDRD) 23.7 ml/min Glucose 96 (74-106) mg/dL Calcium 7.4 L (8.5-10.1) mg/dL Nixon Results Last 24 Hours: Microbiology 03/02/18 17:06 Urine Culture - Final Urine, Clean Catch Escherichia Coli 03/02/18 14:07 Aerobic Blood Culture - Preliminary Blood - Venous - Lab Draw NO GROWTH AFTER 1 DAY Anaerobic Blood Culture - Final 03/02/18 13:56 Aerobic Blood Culture - Preliminary Blood - Venous NO GROWTH AFTER 1 DAY Anaerobic Blood Culture - Preliminary NO GROWTH AFTER 1 DAY Med Orders - Current: Current Medications Acetaminophen (Tylenol) 650 mg PO Q4H PRN PRN Reason: Pain (Mild 1-3)/fever Albuterol/Ipratropium (Duoneb 3.0-0.5 Mg/3 Ml) 3 ml NEB Q4HRRT PRN PRN Reason: Shortness Of Breath/wheezing Amlodipine Besylate (Norvasc) 5 mg PO DAILY [facility] Last Admin: 03/03/18 08:04 Dose: 5 mg Citalopram Hydrobromide (Celexa) 20 mg PO DAILY [facility] Last Admin: 03/03/18 08:04 Dose: 20 mg Levofloxacin/Dextrose 500 mg/ (Premix) 100 mls @ 100 mls/hr IV Q48H [facility] Cefepime HCl 1 gm/ Premix 50 mls @ 100 mls/hr IV Q8H [facility] Last Admin: 03/04/18 04:14 Dose: 100 mls/hr Levothyroxine Sodium (Synthroid) 50 mcg PO ACBREAKFAST [facility] Last Admin: 03/04/18 06:56 Dose: 50 mcg Losartan Potassium (Cozaar) 100 mg PO DAILY [facility] Last Admin: 03/03/18 08:04 Dose: 100 mg Simvastatin (Zocor) 10 mg PO BEDTIME [facility] Last Admin: 03/03/18 20:29 Dose: 10 mg Sodium Chloride (Saline Flush) 10 ml FLUSH ASDIRECTED PRN PRN Reason: Keep Vein Open Sodium Chloride (Saline Flush) 2.5 ml FLUSH ASDIRECTED PRN PRN Reason: Keep Vein Open Discontinued Medications Levofloxacin/Dextrose 500 mg/ (Premix) 100 mls @ 100 mls/hr IV ONETIME ONE Stop: 03/02/18 16:27 Last Admin: 03/02/18 15:35 Dose: 100 mls/hr Levofloxacin/Dextrose 750 mg/ (Premix) 150 mls @ 100 mls/hr IV Q24H [facility] Levofloxacin/Dextrose 250 mg/ (Premix) 50 mls @ 50 mls/hr IV ONETIME ONE Stop: 03/02/18 18:14 Last Admin: 03/02/18 17:36 Dose: Not Given - Exam Quality Assessment: Supplemental Oxygen General: Alert, Oriented HEENT: Other (baseline vision loss) Neck: Supple Lungs: Decreased Breath Sounds (right middle and right lower lobes ), Crackles Cardiovascular: Regular Rate, Regular Rhythm GI/Abdominal Exam: Normal Bowel Sounds, Soft, Non-Tender Extremities: Non-Tender, No Pedal Edema Skin: Ecchymosis Wound/Incisions: Other (left breast lump ) Neurological: No New Focal Deficit Psy/Mental Status: Alert, Normal Affect, Normal Mood - Problem List Review Problem List Initiated/Reviewed/Updated: Yes - My Orders Last 24 Hours: My Active Orders 03/03/18 20:00 Cefepime [Maxipime in D5W 1 GM/50 ML] 1 gm Premix Bag 1 bag IV Q8H - Plan Plan:: 82 yo female admitted with pneumonia and symptomatic anemia due to MDS. We will treat with levaquin, and transfuse one unit of pRBCs #CAP, improving #Acute on Chronic Respiratory Failure with Hypoxia -as per family patient is on home O2 PRN -currently on 3L O2 -BC NGTD Plan: -continue Levaquin & cefepime -f/u cultures #UTI -UA: LE+, WBC 100, Bacteria 3+, Few squams, occult blood positive -UC grows E. coli sensitive to cephalosporins Plan: -continue antibiotics as per above #Leukocytosis, improving -likely multifactoral secondary to CAP and UTI -BC NGTD -plan as per above #Thrombocytopenia, 15k -patient with history of Thrombocytopenia requiring Platelet transfusion -minimal nasal bleeding, no open lesion, generalized ecchymosis, no petechia Plan: -platelets ordered, transfuse when available #Symptomatic Anemia s/p Transfusion 1 unit #Hx MDS -Hb 7.2 at admission, improved to 8.2 following 1 unit pRBC -Hb today 7.4 -MDS followed by Oncology -repeat CBC after platelet transfusion #Acute on Chronic Kidney Disease, improving -CKD stage 3-4 -baseline Cr likely bw 1.4-1.8 -Cr 2.2 at admission, currently 2.0 Plan: -IVF and monitor #Hyperbilirubinemia -chronic, will monitor #Left Breast Lump -patient first noticed it -no previous history of breast ca -out-patient f/u with pcp and heme-onc
[2018-03-04] MEDS: Losartan 50 MG Tab PO SCH (08:37)
[2018-03-04] MEDS: amLODIPine 5 MG Tab PO SCH (08:37)
[2018-03-04] MEDS ORDERED: Levofloxacin/Dextrose 5%-Water 500 MG in Premix Bag 1 BAG IV SCH (16:00)
[2018-03-04] MEDS: Simvastatin 10 MG Tab PO SCH (20:13)
[2018-03-05] MEDS: Cefepime 1 GM in Premix Bag 1 BAG IV SCH ×3 (03:51→20:40)
[2018-03-05] MEDS: Levothyroxine 50 MCG Tab PO SCH (07:25)
[2018-03-05] MEDS: amLODIPine 5 MG Tab PO SCH (08:14)
[2018-03-05] MEDS: Losartan 50 MG Tab PO SCH (08:14)
[2018-03-05] MEDS: Citalopram 20 MG Tab PO SCH (08:14)
--- NOTE | 2018-03-05 08:37 | PCM.PN ---
- General Info Date of Service: 03/05/18 - Review of Systems Systems Review Comment:: no new complaints, generalized weakness - Patient Data Vitals - Most Recent: Last Vital Signs Temp 36.7 C 03/05/18 08:00 Pulse 76 03/05/18 08:00 Resp 22 H 03/05/18 08:00 BP 148/48 H 03/05/18 08:14 Pulse Ox 92 L 03/05/18 08:00 Weight - Most Recent: 67.993 kg I&O - Last 24 Hours: Intake & Output 03/04/18 03/05/18 03/05/18 22:59 06:59 14:59 Intake Total 1162 880 Output Total 600 600 Balance 562 280 Lab Results Last 24 Hours: Laboratory Results - last 24 hr 03/02/18 03/04/18 03/05/18 Range/Units 13:56 04:45 02:07 WBC (4.0-11.0) K/uL RBC (4.30-5.90) M/uL Hgb 8.8 L (12.0-16.0) g/dL Hct 29.6 L (36.0-46.0) % MCV (80.0-98.0) fL MCH (27.0-32.0) pg MCHC (31.0-37.0) g/dL RDW Std Deviation (28.0-62.0) fl RDW Coeff of Jojo (11.0-15.0) % Plt Count (150-400) K/uL MPV (7.40-12.00) fL Add Manual Diff Neutrophils % (Manual) 38 L (48.0-80.0) % Band Neutrophils % % Lymphocytes % (Manual) 20 (16.0-40.0) % Monocytes % (Manual) 35 H (0.0-15.0) % Eosinophils % (Manual) 3 (0.0-7.0) % Metamyelocytes % 1 % Myelocytes % 1 % Blast Cells % 2 % Nucleated RBC % /100WBC Absolute Seg Neuts 4.6 (1.4-5.7) Band Neutrophils # Lymphocytes # (Manual) 2.4 (0.6-2.4) Monocytes # (Manual) 4.2 H (0.0-0.8) Eosinophils # (Manual) 0.4 (0.0-0.7) Absolute Metamyelocyte 0.1 Absolute Myelocytes 0.1 Nucleated RBCs # K/uL Absolute Blast Cells 0.2 Blood Type A POSITIVE Antibody Screen NEGATIVE Crossmatch See Detail 03/05/18 Range/Units 04:40 WBC 14.75 H (4.0-11.0) K/uL RBC 2.81 L (4.30-5.90) M/uL Hgb 8.3 L (12.0-16.0) g/dL Hct 27.5 L (36.0-46.0) % MCV 97.9 (80.0-98.0) fL MCH 29.5 (27.0-32.0) pg MCHC 30.2 L (31.0-37.0) g/dL RDW Std Deviation 79.5 H (28.0-62.0) fl RDW Coeff of Jojo 23 H (11.0-15.0) % Plt Count 33 L (150-400) K/uL MPV 10.90 (7.40-12.00) fL Add Manual Diff YES Neutrophils % (Manual) 51 (48.0-80.0) % Band Neutrophils % 2 % Lymphocytes % (Manual) 8 L (16.0-40.0) % Monocytes % (Manual) 35 H (0.0-15.0) % Eosinophils % (Manual) (0.0-7.0) % Metamyelocytes % 2 % Myelocytes % 1 % Blast Cells % 1 % Nucleated RBC % 0.4 /100WBC Absolute Seg Neuts 7.5 H (1.4-5.7) Band Neutrophils # 0.3 Lymphocytes # (Manual) 1.2 (0.6-2.4) Monocytes # (Manual) 5.2 H (0.0-0.8) Eosinophils # (Manual) (0.0-0.7) Absolute Metamyelocyte 0.3 Absolute Myelocytes 0.1 Nucleated RBCs # 0 K/uL Absolute Blast Cells 0.1 Blood Type Antibody Screen Crossmatch Nixon Results Last 24 Hours: Microbiology 03/02/18 14:07 Aerobic Blood Culture - Preliminary Blood - Venous - Lab Draw NO GROWTH AFTER 2 DAYS Anaerobic Blood Culture - Final 03/02/18 13:56 Aerobic Blood Culture - Preliminary Blood - Venous NO GROWTH AFTER 2 DAYS Anaerobic Blood Culture - Preliminary NO GROWTH AFTER 2 DAYS 03/02/18 17:06 Urine Culture - Final Urine, Clean Catch Escherichia Coli Med Orders - Current: Current Medications Acetaminophen (Tylenol) 650 mg PO Q4H PRN PRN Reason: Pain (Mild 1-3)/fever Albuterol/Ipratropium (Duoneb 3.0-0.5 Mg/3 Ml) 3 ml NEB Q4HRRT PRN PRN Reason: Shortness Of Breath/wheezing Last Admin: 03/05/18 01:10 Dose: 3 ml Amlodipine Besylate (Norvasc) 5 mg PO DAILY [facility] Last Admin: 03/05/18 08:14 Dose: 5 mg Citalopram Hydrobromide (Celexa) 20 mg PO DAILY [facility] Last Admin: 03/05/18 08:14 Dose: 20 mg Levofloxacin/Dextrose 500 mg/ (Premix) 100 mls @ 100 mls/hr IV Q48H [facility] Last Admin: 03/04/18 17:16 Dose: 100 mls/hr Cefepime HCl 1 gm/ Premix 50 mls @ 100 mls/hr IV Q8H [facility] Last Admin: 03/05/18 03:51 Dose: 100 mls/hr Levothyroxine Sodium (Synthroid) 50 mcg PO ACBREAKFAST [facility] Last Admin: 03/05/18 07:25 Dose: 50 mcg Losartan Potassium (Cozaar) 100 mg PO DAILY [facility] Last Admin: 03/05/18 08:14 Dose: 100 mg Simvastatin (Zocor) 10 mg PO BEDTIME [facility] Last Admin: 03/04/18 20:13 Dose: 10 mg Sodium Chloride (Saline Flush) 10 ml FLUSH ASDIRECTED PRN PRN Reason: Keep Vein Open Sodium Chloride (Saline Flush) 2.5 ml FLUSH ASDIRECTED PRN PRN Reason: Keep Vein Open Discontinued Medications Levofloxacin/Dextrose 500 mg/ (Premix) 100 mls @ 100 mls/hr IV ONETIME ONE Stop: 03/02/18 16:27 Last Admin: 03/02/18 15:35 Dose: 100 mls/hr Levofloxacin/Dextrose 750 mg/ (Premix) 150 mls @ 100 mls/hr IV Q24H [facility] Levofloxacin/Dextrose 250 mg/ (Premix) 50 mls @ 50 mls/hr IV ONETIME ONE Stop: 03/02/18 18:14 Last Admin: 03/02/18 17:36 Dose: Not Given - Exam General: Alert, Cooperative Lungs: Clear to Auscultation, Normal Respiratory Effort Cardiovascular: Regular Rate, Regular Rhythm GI/Abdominal Exam: Soft, Non-Tender Extremities: Non-Tender Skin: Warm, Dry, Intact Neurological: No New Focal Deficit - Problem List Review Problem List Initiated/Reviewed/Updated: Yes - My Orders Last 24 Hours: My Active Orders 03/04/18 16:00 Levofloxacin/Dextrose 5%-Water [Levaquin in D5W 500 MG/100 ML] 500 mg Premix Bag 1 bag IV Q48H 03/04/18 19:46 Transfuse Red Blood Cells [COMM] Routine 03/06/18 05:11 BASIC METABOLIC PANEL,BMP [CHEM] AM CBC WITH AUTO DIFF [HEME] AM - Plan Plan:: 82 yo female admitted with pneumonia, uti and symptomatic anemia due to MDS. CAP: on cefepime and levaquin, still has persistent leukocytosis Ecoli UTI: on cefepime MDS: received another pRBC yesterday and unit of platelets, will continue to monitor Acute on Chronic Kidney Disease: improving
[2018-03-05] MEDS: Simvastatin 10 MG Tab PO SCH (20:41)
[2018-03-06] MEDS: Cefepime 1 GM in Premix Bag 1 BAG IV SCH ×2 (04:12→11:36)
[2018-03-06] MEDS: Levothyroxine 50 MCG Tab PO SCH (07:57)
[2018-03-06] MEDS: amLODIPine 5 MG Tab PO SCH (09:31)
[2018-03-06] MEDS: Losartan 50 MG Tab PO SCH (09:31)
[2018-03-06] MEDS: Citalopram 20 MG Tab PO SCH (09:32)
--- NOTE | 2018-03-06 11:23 | PCM.PN ---
- General Info Date of Service: 03/06/18 Admission Dx/Problem (Free Text): Admission Diagnosis/Problem Admission Diagnosis/Problem Anemia Subjective Update: Patient continues to improve. No fever or hypoxia. Her sob is improving. She still has her cough that is not improving. Functional Status: Reports: Pain Controlled, Tolerating Diet, Ambulating - Review of Systems General: Reports: No Symptoms HEENT: Reports: No Symptoms Pulmonary: Reports: Cough Cardiovascular: Reports: No Symptoms Gastrointestinal: Reports: No Symptoms Genitourinary: Reports: No Symptoms Musculoskeletal: Reports: No Symptoms Skin: Reports: Other (breast lump left ) Neurological: Reports: No Symptoms Psychiatric: Reports: No Symptoms - Patient Data Vitals - Most Recent: Last Vital Signs Temp 36.7 C 03/06/18 08:00 Pulse 78 03/06/18 08:00 Resp 18 03/06/18 08:00 BP 140/82 03/06/18 09:31 Pulse Ox 94 L 03/06/18 09:00 Weight - Most Recent: 67.993 kg I&O - Last 24 Hours: Intake & Output 03/05/18 03/06/18 03/06/18 22:59 06:59 14:59 Intake Total 550 550 Output Total 450 700 Balance 100 -150 Lab Results Last 24 Hours: Laboratory Results - last 24 hr 03/06/18 03/06/18 Range/Units 04:55 04:55 WBC 15.68 H (4.0-11.0) K/uL RBC 2.77 L (4.30-5.90) M/uL Hgb 8.2 L (12.0-16.0) g/dL Hct 27.3 L (36.0-46.0) % MCV 98.6 H (80.0-98.0) fL MCH 29.6 (27.0-32.0) pg MCHC 30.0 L (31.0-37.0) g/dL RDW Std Deviation 79.7 H (28.0-62.0) fl RDW Coeff of Jojo 23 H (11.0-15.0) % Plt Count 21 L (150-400) K/uL Add Manual Diff YES Neutrophils % (Manual) 52 (48.0-80.0) % Band Neutrophils % 1 % Lymphocytes % (Manual) 7 L (16.0-40.0) % Monocytes % (Manual) 37 H (0.0-15.0) % Metamyelocytes % 1 % Myelocytes % 1 % Blast Cells % 1 % Nucleated RBC % 0.3 /100WBC Absolute Seg Neuts 8.2 H (1.4-5.7) Band Neutrophils # 0.2 Lymphocytes # (Manual) 1.1 (0.6-2.4) Monocytes # (Manual) 5.8 H (0.0-0.8) Absolute Metamyelocyte 0.2 Absolute Myelocytes 0.2 Nucleated RBCs # 0 K/uL Absolute Blast Cells 0.2 Sodium 136 (136-145) mmol/L Potassium 4.5 (3.5-5.1) mmol/L Chloride 107 (98-107) mmol/L Carbon Dioxide 21.1 (21.0-32.0) mmol/L BUN 43 H (7.0-18.0) mg/dL Creatinine 1.8 H (0.6-1.0) mg/dL Est Cr Clr Drug Dosing 19.24 mL/min Estimated GFR (MDRD) 26.8 ml/min Glucose 107 H (74-106) mg/dL Calcium 7.4 L (8.5-10.1) mg/dL Nixon Results Last 24 Hours: Microbiology 03/02/18 14:07 Aerobic Blood Culture - Preliminary Blood - Venous - Lab Draw NO GROWTH AFTER 3 DAYS Anaerobic Blood Culture - Final 03/02/18 13:56 Aerobic Blood Culture - Preliminary Blood - Venous NO GROWTH AFTER 3 DAYS Anaerobic Blood Culture - Preliminary NO GROWTH AFTER 3 DAYS Med Orders - Current: Current Medications Acetaminophen (Tylenol) 650 mg PO Q4H PRN PRN Reason: Pain (Mild 1-3)/fever Albuterol/Ipratropium (Duoneb 3.0-0.5 Mg/3 Ml) 3 ml NEB Q4HRRT PRN PRN Reason: Shortness Of Breath/wheezing Last Admin: 03/05/18 01:10 Dose: 3 ml Amlodipine Besylate (Norvasc) 5 mg PO DAILY [facility] Last Admin: 03/06/18 09:31 Dose: 5 mg Citalopram Hydrobromide (Celexa) 20 mg PO DAILY [facility] Last Admin: 03/06/18 09:32 Dose: 20 mg Cefepime HCl 1 gm/ Premix 50 mls @ 100 mls/hr IV Q8H [facility] Last Admin: 03/06/18 04:12 Dose: 100 mls/hr Levothyroxine Sodium (Synthroid) 50 mcg PO ACBREAKFAST [facility] Last Admin: 03/06/18 07:57 Dose: 50 mcg Losartan Potassium (Cozaar) 100 mg PO DAILY [facility] Last Admin: 03/06/18 09:31 Dose: 100 mg Simvastatin (Zocor) 10 mg PO BEDTIME [facility] Last Admin: 03/05/18 20:41 Dose: 10 mg Sodium Chloride (Saline Flush) 10 ml FLUSH ASDIRECTED PRN PRN Reason: Keep Vein Open Sodium Chloride (Saline Flush) 2.5 ml FLUSH ASDIRECTED PRN PRN Reason: Keep Vein Open Discontinued Medications Levofloxacin/Dextrose 500 mg/ (Premix) 100 mls @ 100 mls/hr IV ONETIME ONE Stop: 03/02/18 16:27 Last Admin: 03/02/18 15:35 Dose: 100 mls/hr Levofloxacin/Dextrose 750 mg/ (Premix) 150 mls @ 100 mls/hr IV Q24H [facility] Levofloxacin/Dextrose 250 mg/ (Premix) 50 mls @ 50 mls/hr IV ONETIME ONE Stop: 03/02/18 18:14 Last Admin: 03/02/18 17:36 Dose: Not Given Levofloxacin/Dextrose 500 mg/ (Premix) 100 mls @ 100 mls/hr IV Q48H [facility] Last Admin: 03/04/18 17:16 Dose: 100 mls/hr - Exam General: Alert, Oriented HEENT: Other (baseline vision loss ) Neck: Supple Lungs: Other (asymmetric, right middle and lower marmolejo completely absent) Cardiovascular: Regular Rate, Regular Rhythm GI/Abdominal Exam: Normal Bowel Sounds, Soft, Non-Tender, No Organomegaly Back Exam: Normal Inspection Extremities: No Pedal Edema Skin: Intact, Other (no visible bleeding ) Neurological: No New Focal Deficit Psy/Mental Status: Alert, Normal Affect, Normal Mood - Problem List Review Problem List Initiated/Reviewed/Updated: Yes - My Orders Last 24 Hours: My Active Orders 03/06/18 11:17 Chest 2V [CR] Routine - Plan Plan:: #Acute on Chronic Respiratory Failure with Hypoxia, presumed secondary to CAP, improved #CAP, improving -as per family patient is on home O2 PRN -patient doing well, current O2 sat 94 on RA -BC NGTD -treated with Levaquin q48 hours & cefepime Plan: -continue Cefepime, Levaquin q48h due today -continue to monitor #UTI -UA: LE+, WBC 100, Bacteria 3+, Few squams, occult blood positive -UC grows E. coli sensitive to cephalosporins, resistant to Levaquin -treated with Cefepime from 03/03-03/06 #Leukocytosis, worsening #UTI, asymptomatic #CAP, improving #Pulmonary Fibrosis #elevated right Hemidiaphragm #Asymmetric breath sounds -WBC count: 17.4 (03/03), 11.9 (03/04), 14.7 (03/05), 15.6 (today) -currently on Cefepime (03/03-03/06) & Levaquin 500 mg IV q48h (doses given 03/02 & 03/04) -no mention of infiltrate or effusion on initial CXR in ED but did show pulmonary fibrosis and elevated right hemidiaphragm which was present on previous imaging -right middle and upper marmolejo still completely absent which is likely due to her elevated hemidiaphragm Plan: -continue antibiotics as per above -repeat CXR #Chronic Thrombocytopenia s/p platelet transfusion -patient with history of Thrombocytopenia requiring Platelet transfusion -no open lesion, generalized ecchymosis, no petechia -Plat cnt 15k at admission, 33k yesterday following Tx, 21k today Plan: -continue to monitor #Symptomatic Anemia s/p Transfusion, improved #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
[2018-03-06 12:49] VITALS: BP 137/60
--- NOTE | 2018-03-06 13:14 | CR ---
EXAMINATION: Two-view chest (PA and Lateral views). HISTORY: Abnormal breath sounds. Comparison: 03/02/2018, 06/10/2016. FINDINGS: The trachea is midline. The cardiomediastinal silhouette is stable. Median sternotomy wires are noted . No pulmonary infiltrates, effusions or pneumothorax. Again noted is a interstitial prominence. Trac e right pleural effusion cannot be excluded. No pneumothorax. Widening of the right acromioclavicular joint noted. IMPRESSION: 1. Chronic interstitial prominence, an overlying infiltrate is difficult to exclude. 2. A trace right pleural effusion is also not excluded.
--- NOTE | 2018-03-06 15:23 | PCM.DCSUM1 ---
Discharge Summary - Discharge Data Discharge Disposition: Home, Self-Care 01 Condition: Fair - Patient Instructions Diet: Usual Diet as Tolerated Activity: As Tolerated Driving: Do Not Drive Showering/Bathing: May Shower - Discharge Plan Prescriptions/Med Rec: Cephalexin [Keflex] 500 mg PO BID #10 cap Home Medications: Home Meds Citalopram Hydrobromide [Celexa] 20 mg PO DAILY 02/06/14 [History] Glucosamine [Glucosamine Sulfate] 1,000 mg PO DAILY 02/06/14 [History] Simvastatin [Zocor] 10 mg PO BEDTIME 02/06/14 [History] Flaxseed Oil 1,000 mg PO DAILY 06/11/16 [History] Furosemide [Lasix] 40 mg PO DAILY 06/11/16 [History] Levothyroxine [Synthroid] 50 mcg PO ACBREAKFAST 06/11/16 [History] Losartan Potassium [Cozaar] 100 mg PO DAILY 06/11/16 [History] Magnesium Oxide 400 mg PO DAILY 07/10/17 [History] Cholecalciferol (Vitamin D3) [Vitamin D3] 200 units PO DAILY 07/30/17 [History] Multivitamin with Minerals [Multivitamins with Minerals] 1 tab PO DAILY [History] Calcium Carb/D3/Magnesium/Zinc [Neto Mag Zinc + D Tablet] 1 tab PO DAILY [History] amLODIPine Besylate [Amlodipine Besylate] 5 mg PO DAILY 03/02/18 [History] Cephalexin [Keflex] 500 mg PO BID #10 cap 03/06/18 [Rx] Patient Handouts: Anemia Referrals: Charles Doyle MD [Primary Care Provider] - 03/13/18 11:00 am - Patient Data Vitals - Most Recent: Last Vital Signs Temp 97.6 F 03/06/18 12:00 Pulse 71 03/06/18 12:00 Resp 16 03/06/18 12:00 BP 137/60 03/06/18 12:00 Pulse Ox 94 L 03/06/18 12:00 Weight - Most Recent: 149 lb 14.4 oz I&O - Last 24 hours: Intake & Output 03/06/18 03/06/18 03/06/18 06:59 14:59 22:59 Intake Total 550 Output Total 700 Balance -150 Lab Results - Last 24 hrs: Laboratory Results - last 24 hr 03/06/18 03/06/18 Range/Units 04:55 04:55 WBC 15.68 H (4.0-11.0) K/uL RBC 2.77 L (4.30-5.90) M/uL Hgb 8.2 L (12.0-16.0) g/dL Hct 27.3 L (36.0-46.0) % MCV 98.6 H (80.0-98.0) fL MCH 29.6 (27.0-32.0) pg MCHC 30.0 L (31.0-37.0) g/dL RDW Std Deviation 79.7 H (28.0-62.0) fl RDW Coeff of Jojo 23 H (11.0-15.0) % Plt Count 21 L (150-400) K/uL Add Manual Diff YES Neutrophils % (Manual) 52 (48.0-80.0) % Band Neutrophils % 1 % Lymphocytes % (Manual) 7 L (16.0-40.0) % Monocytes % (Manual) 37 H (0.0-15.0) % Metamyelocytes % 1 % Myelocytes % 1 % Blast Cells % 1 % Nucleated RBC % 0.3 /100WBC Absolute Seg Neuts 8.2 H (1.4-5.7) Band Neutrophils # 0.2 Lymphocytes # (Manual) 1.1 (0.6-2.4) Monocytes # (Manual) 5.8 H (0.0-0.8) Absolute Metamyelocyte 0.2 Absolute Myelocytes 0.2 Nucleated RBCs # 0 K/uL Absolute Blast Cells 0.2 Sodium 136 (136-145) mmol/L Potassium 4.5 (3.5-5.1) mmol/L Chloride 107 (98-107) mmol/L Carbon Dioxide 21.1 (21.0-32.0) mmol/L BUN 43 H (7.0-18.0) mg/dL Creatinine 1.8 H (0.6-1.0) mg/dL Est Cr Clr Drug Dosing 19.24 mL/min Estimated GFR (MDRD) 26.8 ml/min Glucose 107 H (74-106) mg/dL Calcium 7.4 L (8.5-10.1) mg/dL MYRIAM Results - Last 24 hrs: Microbiology 03/02/18 14:07 Aerobic Blood Culture - Preliminary Blood - Venous - Lab Draw NO GROWTH AFTER 3 DAYS Anaerobic Blood Culture - Final 03/02/18 13:56 Aerobic Blood Culture - Preliminary Blood - Venous NO GROWTH AFTER 3 DAYS Anaerobic Blood Culture - Preliminary NO GROWTH AFTER 3 DAYS Med Orders - Current: Current Medications Acetaminophen (Tylenol) 650 mg PO Q4H PRN PRN Reason: Pain (Mild 1-3)/fever Albuterol/Ipratropium (Duoneb 3.0-0.5 Mg/3 Ml) 3 ml NEB Q4HRRT PRN PRN Reason: Shortness Of Breath/wheezing Last Admin: 03/05/18 01:10 Dose: 3 ml Amlodipine Besylate (Norvasc) 5 mg PO DAILY [facility] Last Admin: 03/06/18 09:31 Dose: 5 mg Citalopram Hydrobromide (Celexa) 20 mg PO DAILY [facility] Last Admin: 03/06/18 09:32 Dose: 20 mg Cefepime HCl 1 gm/ Premix 50 mls @ 100 mls/hr IV Q8H [facility] Last Admin: 03/06/18 11:36 Dose: 100 mls/hr Levothyroxine Sodium (Synthroid) 50 mcg PO ACBREAKFAST [facility] Last Admin: 03/06/18 07:57 Dose: 50 mcg Losartan Potassium (Cozaar) 100 mg PO DAILY [facility] Last Admin: 03/06/18 09:31 Dose: 100 mg Simvastatin (Zocor) 10 mg PO BEDTIME [facility] Last Admin: 03/05/18 20:41 Dose: 10 mg Sodium Chloride (Saline Flush) 10 ml FLUSH ASDIRECTED PRN PRN Reason: Keep Vein Open Sodium Chloride (Saline Flush) 2.5 ml FLUSH ASDIRECTED PRN PRN Reason: Keep Vein Open Discontinued Medications Levofloxacin/Dextrose 500 mg/ (Premix) 100 mls @ 100 mls/hr IV ONETIME ONE Stop: 03/02/18 16:27 Last Admin: 03/02/18 15:35 Dose: 100 mls/hr Levofloxacin/Dextrose 750 mg/ (Premix) 150 mls @ 100 mls/hr IV Q24H [facility] Levofloxacin/Dextrose 250 mg/ (Premix) 50 mls @ 50 mls/hr IV ONETIME ONE Stop: 03/02/18 18:14 Last Admin: 03/02/18 17:36 Dose: Not Given Levofloxacin/Dextrose 500 mg/ (Premix) 100 mls @ 100 mls/hr IV Q48H [facility] Last Admin: 03/04/18 17:16 Dose: 100 mls/hr
== END 2018-03-06 16:43 | disposition home or self-care (01) | DRG 193 ==
LOC: MW.ED 13:41 → MW.MS 16:03 → OBSVTOIN 16:03
PROVIDERS: ADMIT Internal Medicine; ATTEND Internal Medicine
PROC: 30233N1 Transfusion of Nonautologous Red Blood Cells into Peripheral Vein, Percutaneous Approach (ICD-10-PCS; principal; 2018-03-02)
DX: J18.9 Pneumonia, unspecified organism (principal); J96.21 Acute and chronic respiratory failure with hypoxia; N39.0 Urinary tract infection, site not specified; N18.4 Chronic kidney disease, stage 4 (severe); D46.9 Myelodysplastic syndrome, unspecified; D63.0 Anemia in neoplastic disease; N28.9 Disorder of kidney and ureter, unspecified; B96.20 Unspecified Escherichia coli [E. coli] as the cause of diseases classified elsewhere; D72.829 Elevated white blood cell count, unspecified; H54.7 Unspecified visual loss; H91.93 Unspecified hearing loss, bilateral; J84.10 Pulmonary fibrosis, unspecified; D69.6 Thrombocytopenia, unspecified; I12.9 Hypertensive chronic kidney disease with stage 1 through stage 4 chronic kidney disease, or unspecified chronic kidney disease; E80.6 Other disorders of bilirubin metabolism; I48.91 Unspecified atrial fibrillation; E78.00 Pure hypercholesterolemia, unspecified; I10 Essential (primary) hypertension; I25.2 Old myocardial infarction; I25.10 Atherosclerotic heart disease of native coronary artery without angina pectoris; I07.9 Rheumatic tricuspid valve disease, unspecified; E03.9 Hypothyroidism, unspecified; F32.9 Major depressive disorder, single episode, unspecified; Z86.73 Personal history of transient ischemic attack (TIA), and cerebral infarction without residual deficits; Z79.899 Other long term (current) drug therapy; Z88.8 Allergy status to other drugs, medicaments and biological substances; Z95.1 Presence of aortocoronary bypass graft
CPT/HCPCS: 36415; 71046; 80053; 85025; 85610; 85730; 86850; 86900; 86901; 86920 ×2; 86921 ×2; 86922 ×2; 87040 ×2; 93005; 96365; 99285; J1956; 36430; 80048; 81001; 85014; 85018; 87086; 87088; 87186; A9270-GY; J0692; P9016; P9034